=== PATIENT | male | born 1975 | race Caucasian/White ===

== ENCOUNTER 2019-07-06 15:28 | Emergency (ER) | payer OTHER ==
[~2019-07-06] VITALS: Ht 154.9 cm; Wt 81.6 kg
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
[2019-07-06] MEDS ORDERED: ACETAMINOPHEN ES 500 MG TABLET ONE (17:08)
[2019-07-06] MEDS ORDERED: ONDANSETRON 4 MG TAB.RAPDIS ONE (17:08)
--- NOTE | 2019-07-06 17:14 | NUR ---
BROUGHT TO CT
[2019-07-06] MEDS ORDERED: ONDANSETRON 4 MG TAB.RAPDIS SL ONE (17:30)
[2019-07-06] MEDS ORDERED: ACETAMINOPHEN 325 MG TABLET PO ONE (17:30)
[2019-07-06] MEDS ORDERED: TDAP [DIPH/PERTUSSIS/TET] 0.5 ML VIAL IM ONE ×2 (18:50→19:00)
--- NOTE | 2019-07-06 18:54 | NUR ---
EMT AT BEDSIDE FOR WOUND CARE.
[2019-07-06 18:55] VITALS: BP 128/74
--- NOTE | 2019-07-06 18:56 | NUR ---
Patient discharged to home in stable condition. Written and verbal after care instructions given. Patient verbalizes understanding of instruction. PT in custody. vss. No acute distress noted. Ambulated with steady gait.
== END 2019-07-06 19:25 ==
LOC: ER 15:36
DX: S00.531A Contusion of lip, initial encounter (principal); S00.81XA Abrasion of other part of head, initial encounter; F15.10 Other stimulant abuse, uncomplicated; F17.200 Nicotine dependence, unspecified, uncomplicated; F31.9 Bipolar disorder, unspecified; Y04.0XXA Assault by unarmed brawl or fight, initial encounter; Y93.89 Activity, other specified; Y92.89 Other specified places as the place of occurrence of the external cause; Y99.8 Other external cause status
CPT/HCPCS: 70450; 70486; 90471; 90715; 99284; 99406; Q0162